=== PATIENT | female | born 1990 | race Native Hawaiian/Other Pacific Islander ===

== ENCOUNTER 2021-02-21 11:08 | Emergency (ER) | payer OTHER ==
[~2021-02-21] VITALS: Ht 162.6 cm; Wt 76.7 kg
[2021-02-21 13:30] VITALS: BP 124/75; TEMP 97.8
== END 2021-02-21 13:30 | disposition home or self-care (01) ==
LOC: ED 11:08
DX: N83.292 Other ovarian cyst, left side (principal); N83.291 Other ovarian cyst, right side; R10.31 Right lower quadrant pain
CPT/HCPCS: 99282